=== PATIENT | female | born 1975 | race Caucasian/White ===

== ENCOUNTER 2017-11-08 11:40 | Day surgery (SDC) | payer OTHER ==
[2017-11-08] MEDS: CEFAZOLIN 2 GM/50 ML (PMX) 50 ML IVPB (11:00)
[~2017-11-08 11:40] MED LIST: CEFAZOLIN 1 GM INJ; SOD CHLORIDE 0.9% 1,000 ML IV
[2017-11-08] MEDS ORDERED: BUPIVACAINE 0.25% (MPF) 30 ML INJ (13:37)
[2017-11-08] MEDS ORDERED: SUCCINYLCHOLINE CHLORIDE 100 MG/5 ML SYG IV (14:02)
[2017-11-08] MEDS ORDERED: PROPOFOL 20 ML (14:02)
[2017-11-08] MEDS ORDERED: LIDOCAINE 2% (SDV) 5 ML INJ (14:02)
[2017-11-08] MEDS ORDERED: ROCURONIUM 50 MG INJ (14:02)
[2017-11-08] MEDS ORDERED: MIDAZOLAM 1 MG/ML 2 ML INJ (14:02)
[2017-11-08] MEDS ORDERED: FENTAnyl 50 MCG/ML VIAL (14:05)
[2017-11-08] MEDS: BUPIVACAINE 0.25% (MPF) 30 ML INJ INJ (14:16)
[2017-11-08] MEDS ORDERED: SUGAMMADEX SODIUM 200 MG/2 ML VIAL IV ×2 (14:35→14:42)
[2017-11-08] MEDS ORDERED: KETOROLAC 30 MG INJ (14:40)
[2017-11-08] MEDS ORDERED: DEXAMETHASONE 4 MG/ML 1 ML INJ (14:45)
[2017-11-08] MEDS ORDERED: ONDANSETRON 4 MG INJ ×2 (14:45→15:02)
[2017-11-08] MEDS ORDERED: HYDROmorphONE (0.2 MG/ML) 10ML SYG IV ×3 (15:02→15:30)
[2017-11-08] MEDS: HYDROmorphONE (0.2 MG/ML) 10ML SYG IV (15:22)
[2017-11-08] MEDS ORDERED: DIPHENHYDRAMINE 50 MG INJ IV (15:30)
[2017-11-08] MEDS ORDERED: ONDANSETRON 4 MG INJ IV (15:30)
[2017-11-08] MEDS ORDERED: FENTAnyl 50 MCG/ML VIAL IV ×3 (15:30)
[2017-11-08] MEDS ORDERED: PROCHLORPERAZINE 10 MG INJ IV (15:30)
[2017-11-08] MEDS ORDERED: OXYCODONE/ACETAMINOPHEN (5/325) TAB PO (15:30)
[2017-11-08] MEDS ORDERED: MEPERIDINE 25 MG INJ IV (15:30)
[2017-11-08] MEDS: HYDROCODONE/APAP (5/325) TAB PO (16:38)
== END 2017-11-08 18:20 | disposition home or self-care (01) ==
LOC: SDS 11:40
DX: K80.10 Calculus of gallbladder with chronic cholecystitis without obstruction (principal); E03.9 Hypothyroidism, unspecified; E78.5 Hyperlipidemia, unspecified
CPT/HCPCS: 47562; 88304

== ENCOUNTER 2019-06-05 16:35 | Emergency (ER) | payer MEDICAID, OTHER ==
[2019-06-05 19:17] LABS: URINE BLOOD (Dip) POC Trace-lysed (NEGATIVE); URINE GLUCOSE (Dip) POC Negative (NEGATIVE); URINE KETONES (Dip) POC Negative (NEGATIVE); URINE LEUKOCYTE EST (Dip) POC Negative (NEGATIVE); URINE NITRITE (Dip) POC Negative (NEGATIVE); URINE TOTAL PROTEIN POC Negative (NEGATIVE)
[2019-06-05] MEDS: IBUPROFEN 600 MG TAB PO (19:19)
[2019-06-14 18:57] LABS: URINE BLOOD (Dip) POC Trace-lysed (NEGATIVE); URINE GLUCOSE (Dip) POC Negative (NEGATIVE); URINE KETONES (Dip) POC Negative (NEGATIVE); URINE LEUKOCYTE EST (Dip) POC Negative (NEGATIVE); URINE NITRITE (Dip) POC Negative (NEGATIVE); URINE TOTAL PROTEIN POC Negative (NEGATIVE)
== END 2019-06-05 20:02 | disposition home or self-care (01) ==
LOC: FTE 16:35
DX: M54.6 Pain in thoracic spine (principal)
CPT/HCPCS: 81003; 81025; 99283